=== PATIENT | female | born 1955 ===

== ENCOUNTER 2024-05-21 05:37 | Day surgery (SDC) | payer OTHER ==
[~2024-05-21 05:37] MED LIST: AVAPRO150 MG PO; LIPITOR40 M1; METFORMIN HCL500 MG; NEURONTIN300 MG PO
[2024-05-21] MEDS ORDERED: CEFAZOLIN SODIUM 1,000 MG VIAL IV SCH (09:30)
== END 2024-05-21 11:05 | disposition home or self-care (01) ==
LOC: CIR.AMB 05:37
PROVIDERS: ATTEND Surgery Surgery of the Hand
DX: M67.843 Other specified disorders of tendon, right hand (principal)